=== PATIENT | male | born 1945 | race Caucasian/White ===

== ENCOUNTER 2021-09-28 08:31 | Day surgery (SDC) | payer BC ==
[~2021-09-28 08:31] MED LIST: Sodium Chloride 0.9% 10 ML Syringe FLUSH PRN
[2021-09-28] MEDS: Lactated Ringers 1,000 ML IV SCH (09:05)
[2021-09-28] MEDS ORDERED: Midazolam 1 MG/ML 2 ML SDV ONE (09:39)
[2021-09-28] MEDS ORDERED: Propofol 200 MG/20 ML SDV ONE (09:39)
[2021-09-28 10:55] VITALS: BP 116/70; PULSE 104
== END 2021-09-28 11:10 | disposition home or self-care (01) ==
LOC: KA.SDS 08:31
PROVIDERS: ATTEND Family Medicine
DX: D12.5 Benign neoplasm of sigmoid colon (principal); K57.30 Diverticulosis of large intestine without perforation or abscess without bleeding; G43.109 Migraine with aura, not intractable, without status migrainosus; Z79.899 Other long term (current) drug therapy; Z88.5 Allergy status to narcotic agent; Z20.822 Contact with and (suspected) exposure to COVID-19
CPT/HCPCS: 00812; J2250; J2704; J7120